=== PATIENT | male | born 1985 | race Caucasian/White ===

== ENCOUNTER 2020-08-05 23:56 | Emergency (ER) | payer OTHER ==
[~2020-08-05] VITALS: Ht 190.5 cm; Wt 81.8 kg
[2020-08-06] MEDS ORDERED: iohexol 350MG/ML 100ml bottle IV ONE (01:34)
[2020-08-06 01:45] VITALS: BP 139/88
--- NOTE | 2020-08-06 02:32 | NUR ---
SPOKE WITH [facility] ABOUT PT'S CASE AND WAS TOLD THEY HAVE HIS CASE INFORMATION BUT BEFORE A CASE # COULD BE ASSISGNED THE DEPUTY NEEDED MORE INFORMATION. DISPATCH STATED THEY WOULD INFORM THE DEPUTY THAT PT WAS AT [facility] AND WOULD HAVE THEM GET IN CONTACT WITH US
--- NOTE | 2020-08-06 03:10 | NUR ---
RECEIVED CALL BACK FROM [facility]. CASE #[id number]
== END 2020-08-06 03:05 | disposition home or self-care (01) ==
LOC: ER 23:56
DX: S06.0X0A Concussion without loss of consciousness, initial encounter (principal); S00.83XA Contusion of other part of head, initial encounter; T71.9XXA Asphyxiation due to unspecified cause, initial encounter; G43.909 Migraine, unspecified, not intractable, without status migrainosus; Z72.89 Other problems related to lifestyle; Z56.0 Unemployment, unspecified; Y04.0XXA Assault by unarmed brawl or fight, initial encounter; Y93.89 Activity, other specified; Y92.89 Other specified places as the place of occurrence of the external cause; Y99.8 Other external cause status
CPT/HCPCS: 70450; 70496; 70498; 99285; Q9967